=== PATIENT | male | born 2000 | race Caucasian/White ===

== ENCOUNTER 2023-09-09 20:18 | Emergency (ER) | payer BC ==
[2023-09-09] MEDS ORDERED: XYLOCAINE 1% HCL 20 ML MDV IJ ONE (20:19)
[2023-09-09 20:25] VITALS: TEMP 100.2
[2023-09-09] MEDS ORDERED: PROVENTIL 2.5 MG/3 ML NEB IH ONE ×4 (20:25→22:11)
[2023-09-09] MEDS ORDERED: MOTRIN 600 MG PO ONE (20:31)
--- NOTE | 2023-09-09 20:31 | ERPHSYRPT ---
- History of Present Illness Time Seen by Provider: 09/09/23 20:21 Source: patient Patient Subjective Stated Complaint: Pt states "I worked outside in the cold and I have felt bad ever since." Triage Nursing Assessment: Pt presented alert and oriented X 3, skin wpd. PT amb ulates with an upright steady gait, able to speak in clear full sentences. Pt resting comfortably on the bed. Physician History: For the past 2 days pt has had a subjective fever, aches, shortness of air and a cough productive of clear phlegm; denies chest pain, abdominal pain, vomiting. Allergies/Adverse Reactions: azithromycin Allergy (Unknown, Verified 09/09/23 20:25) Home Medications: Venlafaxine HCl ER 75 mg [Effexor XR 75 MG] 75 mg PO DAILY 09/09/23 [History] Hx Tetanus, Diphtheria Vaccination/Date Given: No Hx Influenza Vaccination/Date Given: No Hx Pneumococcal Vaccination/Date Given: No Immunizations Up to Date: No Travel Risk - International Travel Have you traveled outside of the country in past 3 weeks: No - Coronavirus Screening Are you exhibiting any of the following symptoms?: Yes Symptoms: Fever, Cough: New Onset, Shortness of Breath, Headaches/Body Aches/Fatigue Close contact with a COVID-19 positive Pt in past 14-21 Days: No - Vaccine Status Have you recieved a Covid-19 vaccination: No - Review of Systems Constitutional: Fever (subjective) Respiratory: Cough, Dyspnea Cardiac: No Chest Pain Abdominal/Gastrointestinal: No Abdominal Pain, No Vomiting Genitourinary Symptoms: No Dysuria Musculoskeletal: Other (Generalized aches) Neurological: No Headache - Past Medical History Pertinent Past Medical History: Yes Respiratory History: Asthma Psycho-Social History: Depression - Past Surgical History Past Surgical History: No - Social History Smoking Status: Current every day smoker How long have you smoked: 3 years Exposure to second hand smoke: Yes Drug Use: none Patient Lives Alone: No - Nursing Vital Signs Nursing Vital Signs: Initial Vital Signs Temperature 100.2 F 09/09/23 20:19 Pulse Rate 132 H 09/09/23 20:19 Respiratory Rate 22 09/09/23 20:19 O2 Sat by Pulse Oximetry 96 09/09/23 20:19 Pain Scale Pain Intensity 2 - Physical Exam General Appearance: alert Eye Exam: PERRL/EOMI Ears, Nose, Throat Exam: TM abnormal (L) (erythematous), pharyngeal erythema Neck Exam: normal inspection Respiratory Exam: wheezing Cardiovascular Exam: normal heart sounds Gastrointestinal/Abdomen Exam: normal bowel sounds Extremity Exam: No pedal edema Neurologic Exam: alert, cooperative Skin Exam: warm, dry, No cyanosis SpO2 Interpretation: normal SpO2: 96 O2 Delivery: Room Air - Course Nursing assessment & vital signs reviewed: Yes - Radiology Exams Chest X-ray Interpretation: Interpreted by me, No Pneumonia Ordered Tests: Active Orders 24 hr Category Date Time Status Velvet Steamer STAT Care 09/09/23 20:32 Active EKG-ER Only STAT Care 09/09/23 20:32 Active CHEST 2 VIEWS (PA AND LAT) Stat Exams 09/09/23 20:26 Taken Respiratory Therapy Assessment DAILY RT 09/09/23 20:26 Active Medication Summary Discontinued Medications Generic Name Dose Route Start Last Admin Trade Name Freq PRN Reason Stop Dose Admin Albuterol Sulfate Confirm 09/09/23 20:25 Albuterol Sulfate 2.5 Mg/3 Ml Neb Administered 09/09/23 20:26 Dose 2.5 mg IH .STK-MED ONE Albuterol Sulfate 2.5 mg 09/09/23 20:26 09/09/23 20:28 Albuterol Sulfate 2.5 Mg/3 Ml Neb 09/09/23 20:27 2.5 mg STAT ONE Administration Albuterol Sulfate 2.5 mg 09/09/23 21:57 Albuterol Sulfate 2.5 Mg/3 Ml Neb 09/09/23 21:58 STAT ONE Ceftriaxone Sodium 1,000 mg 09/09/23 21:56 Ceftriaxone Sodium 1000 Mg Inj Vial IM 09/09/23 21:57 STAT ONE Ibuprofen 600 mg 09/09/23 20:31 09/09/23 20:35 Ibuprofen 600 Mg Tablet PO 09/09/23 20:32 600 mg STAT ONE Administration Ibuprofen Confirm 09/09/23 20:34 Ibuprofen 600 Mg Tablet Administered 09/09/23 20:35 Dose 600 mg .ROUTE .STK-MED ONE Lab/Rad Data: Laboratory Results 09/09/23 09/09/23 Range/Units 20:50 20:50 Influenza Type A Ag NEGATIVE (NEGATIVE) Influenza Type B Ag NEGATIVE (NEGATIVE) RSV (PCR) NEGATIVE (NEGATIVE) SARS-CoV-2 (PCR) NEGATIVE (NEGATIVE) Group A Strep Antibody NOT DETECTED (NEGATIVE) - Progress Progress: improved Progress Note: 09/09/23 22:07 Pt auscultated again with improvement in wheezing but still minor amount of wheezing. Counseled pt/family regarding: lab results, diagnosis, rad results Medical Desision Making - Diagnostic Testing Diagnostic test were ordered, analyzed, and reviewed by me: Yes Radiological Interpretation: Interpreted by me - Departure Departure Disposition: Home Clinical Impression: Asthmatic bronchitis, Left otitis media, Pharyngitis Condition: Stable Critical Care Time: No Referrals: MOHINDER LUCAS NP [Primary Care Provider] - Follow up/PCP as directed Instructions: Asthma, Adult (DC) Additional Instructions: FOLLOW UP WITH PRIVATE DOCTOR TOMORROW. Forms: Work/School Release Form Prescriptions: Albuterol 2.5 mg/0.5 ml [PROVENTIL Solution 2.5 MG/0.5 ML] 2.5 mg IH Q4H PRN PRN #25 PRN Reason: Shortness Of Breath/Wheezing Cefpodoxime Proxetil 200 mg [Vantin 200 mg] 200 mg PO BID #20 tablet
[2023-09-09] MEDS ORDERED: MOTRIN 600 MG ONE (20:34)
[2023-09-09 21:39] LABS: INFLUENZA A NEGATIVE (NEGATIVE); INFLUENZA B NEGATIVE (NEGATIVE); RESPIRATORY SYNCTIAL VIRUS NEGATIVE (NEGATIVE); SARS-CoV-2 Xpert Express NEGATIVE (NEGATIVE)
[2023-09-09] MEDS ORDERED: Rocephin 1000 MG INJ IM ONE (21:56)
[2023-09-09] MEDS ORDERED: Rocephin 1000 MG INJ ONE (22:01)
[2023-09-09 22:05] VITALS: BP 107/83
[2023-09-09 22:15] VITALS: PULSE 127; RESP 20; O2SAT 93
--- NOTE | 2023-09-10 08:40 | XRAY ---
Indication: Cough. Comparison: January 30, 2008 PA/lateral chest demonstrates normal heart, lungs, and bony thorax.
== END 2023-09-09 22:28 | disposition home or self-care (01) ==
LOC: ED 20:18
DX: J45.909 Unspecified asthma, uncomplicated (principal); H66.92 Otitis media, unspecified, left ear; J02.9 Acute pharyngitis, unspecified; R05.1 Acute cough; R06.02 Shortness of breath; Z79.899 Other long term (current) drug therapy; Z28.310 Unvaccinated for COVID-19; Z72.0 Tobacco use
CPT/HCPCS: 0241U; 71046; 87651; 93005; 93041; 94640; 96372; 99284; J0696; J7609; A9270-GY